=== PATIENT | male | born 1995 | race Caucasian/White ===

== ENCOUNTER 2019-05-30 08:23 | Emergency (ER) | payer MEDICAID, OTHER ==
[~2019-05-30] VITALS: Ht 180.3 cm; Wt 56.8 kg
[2019-05-30 08:31] VITALS: BP 135/112
[2019-05-30] MEDS ORDERED: ROBCFL PO (08:51)
== END 2019-05-30 09:00 | disposition home or self-care (01) ==
LOC: ER 08:23
DX: J06.9 Acute upper respiratory infection, unspecified (principal); Z56.0 Unemployment, unspecified
CPT/HCPCS: 99282

== ENCOUNTER 2020-12-07 14:42 | Emergency (ER) | payer OTHER, SELFPAY ==
[~2020-12-07] VITALS: Ht 180.3 cm; Wt 59.6 kg
[2020-12-07 14:59] VITALS: BP 131/95
[2020-12-07] MEDS ORDERED: bacitracin 15gm ointment TP ONE (15:55)
[2020-12-07] MEDS ORDERED: TETanus/Pertussis (Acell)/Diphther VAC/PF (Tdap-Adult) 0.5ml syringe IMVAC ONE (15:55)
[2020-12-07] MEDS ORDERED: BACI28OI9 TP (15:58)
== END 2020-12-07 16:16 | disposition home or self-care (01) ==
LOC: ER 14:43
DX: T23.252A Burn of second degree of left palm, initial encounter (principal); T24.122A Burn of first degree of left knee, initial encounter; T24.121A Burn of first degree of right knee, initial encounter; Z79.2 Long term (current) use of antibiotics; Z56.0 Unemployment, unspecified; Z72.89 Other problems related to lifestyle; W40.1XXA Explosion of explosive gases, initial encounter; Y93.89 Activity, other specified; Y92.89 Other specified places as the place of occurrence of the external cause; Y99.8 Other external cause status
CPT/HCPCS: 10061; 16020; 90471; 90715; 99283

== ENCOUNTER 2020-12-17 12:47 | Emergency (ER) | payer OTHER ==
[~2020-12-17] VITALS: Ht 180.3 cm; Wt 56.8 kg
[~2020-12-17 12:47] MED LIST: BACI28OI9 TP
[2020-12-17 13:37] VITALS: BP 114/75
== END 2020-12-17 14:02 | disposition home or self-care (01) ==
LOC: ER 12:48
DX: T23.002D Burn of unspecified degree of left hand, unspecified site, subsequent encounter (principal); Z72.89 Other problems related to lifestyle; Z79.899 Other long term (current) drug therapy; X58.XXXD Exposure to other specified factors, subsequent encounter
CPT/HCPCS: 99281

== ENCOUNTER 2024-10-29 13:38 | Outpatient (CLI) | payer MEDICAID ==
--- NOTE | 2024-10-30 15:03 | RADIOLOGY REPORT ---
PROCEDURE: MR MRI HEAD Indication: SYNCOPE,UNSPECIFIED SYNCOPE TYPE COMPARISON: None TECHNIQUE: Multiplanar multisequence images of the brain are obtained. FINDINGS: There is no abnormal diffusion restriction. There is increased T1 signal within the left superior sagittal sinus, left transverse sinus, left sigmoid sinus. There is no intracranial hemorrhage. No extra-axial fluid collection. Region of increased T2/FLAIR signal within the left cerebellum measuring 9 mm. The ventricles are midline and normal in size. The cisterns are patent. Normal intracranial flow voids are preserved. No abnormal susceptibility signal. The sinuses and mastoids are well pneumatized. The visualized orbits are unremarkable. IMPRESSION: No acute cerebrovascular ischemia. Increased T1 signal within the left superior sagittal sinus / transverse and sigmoid sinus. Recommend CT venogram head to exclude dural venous sinus thrombosis. 9 mm region of increased T2 signal within the left cerebellum. Recommend MRI brain with contrast to evaluate for old infarct lesion/mass, demyelinating processes. Findings communicated to NITIN Moreno, at [facility] at 1503 hours on 10/30/2024. Multiple attempts were made to contact the ordering provider apparently does no longer work at [facility]
== END 2024-10-29 23:59 | disposition home or self-care (01) ==
LOC: MRI02 13:38
PROVIDERS: ATTEND Nurse Practitioner Family
DX: R55 Syncope and collapse (principal)
CPT/HCPCS: 70551

== ENCOUNTER 2024-10-31 18:44 | Emergency (ER) | payer MEDICAID ==
[~2024-10-31] VITALS: Ht 180.3 cm; Wt 62.0 kg
[2024-10-31 19:13] VITALS: BP 119/74; PULSE 99; RESP 15; TEMP 96.8; O2SAT 98
== END 2024-10-31 22:58 | disposition left against medical advice (07) ==
LOC: ER 18:45
DX: R51.9 Headache, unspecified (principal); Z53.21 Procedure and treatment not carried out due to patient leaving prior to being seen by health care provider

== ENCOUNTER 2025-01-29 11:52 | Outpatient (CLI) | payer MEDICAID ==
--- NOTE | 2025-01-29 16:04 | RADIOLOGY REPORT ---
MRI BRAIN WITHOUT CONTRAST HISTORY: ABNORMAL BRAIN MRI COMPARISON: MR MRI HEAD on DOS: 10/29/24 TECHNIQUE: Multi-sequence, multiplanar magnetic resonance images of the brain are reviewed. FINDINGS: Limited study, with only DWI sequence submitted for evaluation, which is also severely motion degraded. No definite acute infarcts seen on this limited sequence. IMPRESSION: Limited study with only DWI sequence submitted for evaluation. Recommend repeat study.
[2025-01-29] MEDS ORDERED: GADOTERATE MEGLUMINE 7.5 MMOL/15 ML VIAL IV ONE (18:21)
== END 2025-01-29 23:59 | disposition home or self-care (01) ==
LOC: MRI 11:52
PROVIDERS: ATTEND Nurse Practitioner Family
DX: R90.89 Other abnormal findings on diagnostic imaging of central nervous system (principal)
CPT/HCPCS: 70553; A9575